=== PATIENT | female | born 1995 | race African-American/Black ===

== ENCOUNTER 2023-01-31 21:05 | Emergency (ER) | payer SELFPAY ==
[~2023-01-31] VITALS: Ht 165.1 cm; Wt 91.0 kg
[2023-01-31 21:25] VITALS: BP 125/79; PULSE 115; RESP 18; TEMP 98.3; O2SAT 97
== END 2023-01-31 22:16 | disposition left against medical advice (07) ==
LOC: ER 21:05
DX: F10.129 Alcohol abuse with intoxication, unspecified (principal); Z53.21 Procedure and treatment not carried out due to patient leaving prior to being seen by health care provider
CPT/HCPCS: 99281

== ENCOUNTER 2024-06-27 06:13 | Emergency (ER) | payer MEDICAID ==
[~2024-06-27] VITALS: Ht 165.1 cm; Wt 5.0 kg
[2024-06-27 06:28] VITALS: TEMP 36.9; O2SAT 100
[2024-06-27] MEDS: ACETAMINOPHEN 325MG TABLET PO PRN (07:03)
[2024-06-27 07:04] VITALS: BP 154/94; PULSE 100; RESP 12; O2SAT 100
[2024-06-27 07:35] LABS: BASOPHILS % 1.3 % (0.0-2.0); EOSINOPHILS % 1.5 % (0.0-5.0); HEMATOCRIT. 31.4 % (36.0-48.0); HEMOGLOBIN. 9.7 g/dL (12.0-16.0); LYMPHOCYTES % 19.1 % (20.0-50.0); MEAN CORPUSCULAR VOLUME 67.8 fL (81.0-99.0); NEUTROPHILS % 71.1 % (40.0-76.0); PLATELET 279 x1000/uL (130-400); RED BLOOD CELL COUNT 4.62 mill/uL (4.2-5.4); RED CELL DISTRIBUTION WIDTH 19.8 % (11.6-14.6); WHITE BLOOD COUNT 8.8 x1000/uL (4.5-11.0)
[2024-06-27 07:36] LABS: CHLORIDE 109 mEq/L (98-107); POTASSIUM 4.2 mEq/L (3.5-5.1); SODIUM 141 mEq/L (136-145)
[2024-06-27 07:37] LABS: CALCIUM 9.6 mg/dL (8.7-10.4); CARBON DIOXIDE 24 mEq/L (21-32)
[2024-06-27 07:42] LABS: CREATININE 0.9 mg/dL (0.6-1.0); GLUCOSE 105 mg/dL (70-105); UREA NITROGEN BLOOD 13 mg/dL (9-23)
[2024-06-27 08:18] LABS: ADD RBC MORPHOLOGY YES; DIFFERENTIAL COMMENT 1
[2024-06-27 08:27] LABS: B-HCG QUANTITATIVE < 1 mIU/mL (<3)
[2024-06-27 09:45] LABS: ANISOCYTOSIS 2+; PLATELET ESTIMATE NORMAL
[2024-06-27 09:46] LABS: MICROCYTOSIS 2+
== END 2024-06-27 07:23 | disposition home or self-care (01) ==
LOC: ER 06:13
DX: O26.891 Other specified pregnancy related conditions, first trimester (principal); O99.341 Other mental disorders complicating pregnancy, first trimester; Z3A.13 13 weeks gestation of pregnancy
CPT/HCPCS: 36415; 76856; 80048; 84702; 85025; 99284